=== PATIENT | female | born 1975 | race Caucasian/White ===

== ENCOUNTER 2018-01-11 16:22 | Emergency (ER) | payer MEDICAID, SELFPAY ==
[2018-01-11 16:24] VITALS: PULSE 120; RESP 16; TEMP 36.9; O2SAT 90; BMI 24.2
--- NOTE | 2018-01-11 16:41 | CT_ITS ---
STUDY: CT BRAIN WITHOUT CONTRAST REASON FOR EXAM: Female, 42 years old. Altered mental status. RADIATION DOSAGE (If Supplied By Facility): CTDIvol = ( 44.99 ) mGy, DLP = ( 1828.44 ) mGycm TECHNIQUE: Transaxial CT imaging of the brain was performed without administration of intravenous contrast material. Individualized dose optimization techniques were used for this CT. COMPARISON: None. FINDINGS: Normal soft tissue structures. Normal calvarium. Motion artifact degrades anatomic detail. Normal size ventricles and extra-axial spaces for the patient's age. Normal white matter tracts of the cerebral hemispheres. Normal basal ganglia and thalami. Normal brainstem. Normal cerebellum. There is no intracranial hemorrhage. There are no findings of an acute ischemic infarction. Normal visualized paranasal sinuses. CT/Brain/Head without Contrast IMPRESSION: Limited examination secondary to motion artifact demonstrating no acute intracranial process. Electronically Signed: Mady Fonseca MD at 21:13 EDT Tel , Service support ,
[2018-01-11] MEDS: Ziprasidone IM 20 MG/ML VIAL IM ×2 (16:47→19:00)
[2018-01-11 17:01] VITALS: BP 134/65
--- NOTE | 2018-01-11 17:02 | EKG12_ITS ---
Test Reason : OD Blood Pressure : / mmHG Vent. Rate : 097 BPM Atrial Rate : 097 BPM P-R Int : 126 ms QRS Dur : 084 ms QT Int : 400 ms P-R-T Axes : 085 081 067 degrees QTc Int : 508 ms Normal sinus rhythm Prolonged QT Abnormal ECG Confirmed by WILVER GOODWIN ([id number]), fan mail editor SVITLANA SETINBERG ([id number]) on 01/15/2018 1:37:41 PM Referred By: FIORELLA Confirmed By:WILVER GOODWIN
--- NOTE | 2018-01-11 17:16 | ED.RN ---
PT HAS BEEN YELLING INTERMITTENTLY, CURSING AT STAFF, AND THREATENING TO KICK YOUR BITCH ASS TO SEVERAL OF THE STAFF. PT SHAKING ARMS THAT ARE RESTRAINED AND ATTEMPTED TO BITE SEVERAL OF THE STAFF WHEN APPLYING LOCKED RESTRAINTS. UNABLE TO OBTAIN ALL VITAL SIGNS AT THIS TIME.
[2018-01-11] MEDS: DiphenhydrAMINE 50 MG/ML Syringe 25 MG IV (17:39)
[2018-01-11] MEDS: Haloperidol Lactate 5 MG/ML Vial 10 MG IM (17:39)
--- NOTE | 2018-01-11 17:48 | ED.VISSUMM ---
- ER Visit Summary Date of Service: 01/11/18 Chief Complaint: Overdose History of Present Illness: The patient is a 42 F presenting with police with agitation. Patient was found screaming after an unknown ingestion. She had amitriptyline in a bag next to her. Unknown how many she ingested. She was reportedly at a drug house last night. She has been talking about being better off . She is unable to provide any additional history. Physical Examination: Vitals are stable. Patient is afebrile. Alert no acute distress. HEENT exam is unremarkable. Neck is supple. Lungs are clear and equal bilaterally. Heart is regular and tachycardic Abdomen is soft nontender nondistended. Extremities are unremarkable. Skin is warm and dry. No focal neurologic deficit. Agitated and screaming Remainder of exam is unremarkable. Emergency Department Course and Treatment: Patient was given Geodon, Haldol, Benadryl, Ativan. CBC shows a white count of 14.5, chemistries unremarkable. HCG negative. Salicylate level is 2.8, Tylenol level less than 2.0. Alcohol 8.0. Tox positive for THC, methamphetamine, amphetamine. CT head shows no acute hemorrhage, motion artifact. Patient will be observed in the emergency department and checked out to oncoming physician for re-evaluation. Disposition: pending Impression: Polysubstance abuse This note was generated with Rayspan dictation software. It may contain incorrect words, spelling, and punctuation that were not noted in review of the chart prior to signing ED Disposition - Plan for ED Patient: Chief Complaint: Overdose Referrals: Kylah Jordan MD [Primary Care Provider] -
[2018-01-11 18:29] VITALS: PULSE 120; RESP 16; O2SAT 98
[2018-01-11 20:36] LABS: Absolute Lymphocyte Count 2.85 X10^3/ul (0.83-4.51); Absolute Neutrophil Count 11.2 X10^3/uL (2.0-7.7); Basophil# 0.02 X10^3/uL; Basophil% 0.1 % (0-1); Eosinophil# 0.01 X10^3/uL; Eosinophils% 0.1 % (0-5); Hematocrit 42.3 % (37-47); Hemoglobin 13.9 g/dl (12.0-15.0); Lymphocyte # 2.85 X10^3/ul (4.0); Lymphocyte % 19.6 % (19-41); Mean Corp Hgb Conc 32.9 g/gl (32-36); Mean Corpuscular Volume 88.3 fL (81-99); Monocyte# 0.45 X10^3/uL; Monocyte% 3.1 % (0-10); Neutrophil # 11.16 X10^3/uL (2.7-7.7); Neutrophil % 76.9 % (47-70); Platelet Count 360 K/mm3 (150-450); RBC Distribution Width CV 13.3 % (11.6-14.6); RBC Distribution Width SD 43.3 fl (35.1-43.9); Red Blood Count 4.79 M/mm3 (4.2-5.4); White Blood Count 14.5 K/mm3 (4.4-11.0)
[2018-01-11 20:39] LABS: POSITIVE COUNT NO; POSITIVE DIFFERENTIAL NO; POSITIVE MORPHOLOGY NO
[2018-01-11 20:49] LABS: Anion Gap 9 (5-15); BUN 5 mg/dL (7-18); BUN/Creat Ratio 7.4 RATIO (10-20); Calcium,Total 9.1 mg/dL (8.5-10.1); Chloride 108 mmol/L (98-107); Creatinine, Serum 0.67 mg/dL (0.55-1.02); EST Glomerular Filtration Rate 103 mL/min (>60); Est Glom Filt Rate - Afr Amer 125 mL/min (>60); Estimated Creatinine Clearance 104.49 ml/min; Glucose 97 mg/dL (74-106); Potassium 3.8 mmol/L (3.5-5.1); Sodium Level 142 mmol/L (136-145)
[2018-01-11 20:59] LABS: Pregnancy, Serum, hCG Quali. NEGATIVE Negative (0-9 Nonpreg)
[2018-01-11 20:59] LABS: Amphetamine Urine VISTA POSITIVE (<1000 ng/mL); Barbiturate Urine VISTA NEGATIVE (< 200 ng/mL); Benzodiazepine Urine VISTA NEGATIVE (< 200 ng/mL); Cocaine Urine VISTA NEGATIVE (< 300 ng/mL); Ecstacy Urine VISTA POSITIVE (< 500 ng/mL); Methadone Urine VISTA NEGATIVE (< 300 ng/mL); PCP Urine VISTA NEGATIVE (< 25 ng/mL); THC Urine VISTA POSITIVE (< 50 ng/mL); Vista UDS pH Range 5
[2018-01-11 21:17] LABS: Acetaminophen (Tylenol) Level < 2.0 ug/mL (10.0-30.0); Salicylate 2.8 mg/dL (2.8-20.0)
[2018-01-11 22:15] VITALS: PULSE 107; RESP 16; O2SAT 97
--- NOTE | 2018-01-11 22:31 | ED.RN ---
PT SLEPT BRIEFLY AND NOW AWAKE AND SCREAMING AND THRASHING WITH LOCKED 4 POINT RESTRAINTS.
[2018-01-11 23:57] VITALS: BP 110/70; PULSE 92; RESP 16
[2018-01-12] VITALS (20 sets, daily range): BP systolic 104–151; BP diastolic 48–74; PULSE 60–87; RESP 12–19; O2SAT 96–100
--- NOTE | 2018-01-12 00:09 | ED.RN ---
PT SCREAMS INTERMITTENTLY AND MANY ATTEMPTS HAVE BEEN MADE TO EXPLAIN TO PT ON LOCKED RESTRAINTS, PT WILL NOT STOP YELLING AND SCREAMING TO ALLOW AN EXPLANATION.
[2018-01-12] MEDS: LORazepam 2 MG/ML Syringe IM (01:57)
--- NOTE | 2018-01-12 02:10 | ED.RN ---
WHEN ASSISTING ANOTHER RN ADMINISTER IM [facility], THE PT JERKED HER LEG CAUSING THE NEEDLE TO COME OUT AND MAKE TWO SUPERFICIAL ABRASIONS ON THE RIGHT OUTER THIGH. BACITRACIN AND BAND AID APPLIED.
--- NOTE | 2018-01-12 06:30 | ED.RN ---
RESTRAINTS DISCONTINUED.
--- NOTE | 2018-01-12 06:58 | NURSING ---
CALLED [facility] TO MAKE THEM AWARE OF PATIENT
--- NOTE | 2018-01-12 07:10 | NURSING ---
RUFUS WARE , CALLED BACK. SHE WILL SEND DAKOTAH IN TO SEE PATIENT
--- NOTE | 2018-01-12 07:56 | ED.RN ---
TALKED WITH [facility] FROM [facility]. STATES NAYA WILL BE OVER TO ASSESS PT THIS AM
--- NOTE | 2018-01-12 09:31 | NURSING ---
DAKOTAH, [facility], HERE
--- NOTE | 2018-01-12 11:50 | ED.RN ---
NAYA FROM [facility] HERE TO SEE PT
--- NOTE | 2018-01-12 12:03 | ED.RN ---
PT MOTHER CALLED IN. TALKING WITH NAYA FROM [facility]
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
--- NOTE | 2018-01-12 14:05 | ED.RN ---
PT BECOMES VERY VERY ANGRY. PT KICKING OUT AND SCREAMING. THIS RN ABLE TO PROVIDE WARM BLANKETS AND CALM PT DOWN. PT RESTING
--- NOTE | 2018-01-12 15:04 | ED.RN ---
NAYA FROM [facility] IN WITH PT TO EVALUATE
--- NOTE | 2018-01-12 15:22 | EKG12_ITS ---
Test Reason : [facility] [place] Blood Pressure : / mmHG Vent. Rate : 067 BPM Atrial Rate : 067 BPM P-R Int : 120 ms QRS Dur : 084 ms QT Int : 472 ms P-R-T Axes : 070 069 068 degrees QTc Int : 498 ms Normal sinus rhythm Prolonged QT Abnormal ECG Confirmed by AGNIESZKA PÉREZ, LIAM ([id number]), communications editor SVITLANA STEINBERG ([id number]) on 01/15/2018 1:17:54 PM Referred By: FIORELLA Confirmed By:LIAM AARON MD
--- NOTE | 2018-01-12 15:36 | ED.RN ---
PATIENT RESTING IN BED WHILE RT IS IN ROOM DOING AN EKG. PT IS CURRENTLY COOPERATIVE AND HAS NO C/O. PT HAS MULTIPLE FOOD ITEMS AT BEDSIDE THAT SHE ASKED FOR AND HASN'T EATEN YET.
[2018-01-12 15:43] LABS: TCA Internal Control -Neg LINE = VALID (- VALID); TCA Urine Drug Screen POSITIVE (<1000 ng/mL)
[2018-01-12 16:06] LABS: AST(SGOT) 13 U/L (15-37); Alanine Aminotransfer ALT/SGPT 16 U/L (13-56); Alkaline Phosphatase 45 U/L (45-117); Globulin 3.8 g/dL (2.2-4.2); Protein, Total 7.8 g/dL (6.4-8.2)
--- NOTE | 2018-01-12 17:04 | ED.RN ---
pt friend angus calls to speak with manish from [facility]. pt given crises number and will page manish to contact her regarding pt
--- NOTE | 2018-01-12 17:28 | ED.RN ---
PATIENT RESTING W/O C/O. PT OFFERED A DRINK AND SHE REFUSED. VITALS OBTAINED. PT GIVEN ADDITIONAL BLANKETS DUE TO BEING COLD.
--- NOTE | 2018-01-12 17:56 | ED.RN ---
nurse from [facility] calls to gather more information regarding pt placement. states will have to discuss with both psychiatrist and medical dr due to the possible tricyclic overdose.
--- NOTE | 2018-01-12 18:22 | ED.RN ---
patient's friend angus is present at bedside. Rk, crisis counselor has been paged to notify him that she is at bedside.
--- NOTE | 2018-01-12 18:33 | ED.RN ---
Addendum entered by Rosanna Gauthier 01/12/18 18:38: NAYA, CRISIS COUNSELOR, HAS BEEN PAGED PREVIOUSLY AND AWAITING CALL BACK. Original Note: THIS RN SPOKE TO STAFF AT [facility] WHO EXPLAINED THAT THEY WOULD NOT BE ABLE TO ACCEPT THE PATIENT AT THIS CURRENT TIME PER ACCEPTING PHYSICIAN DUE TO PATIENT'S BEHAVIOR AND HER CONDITION LESS THAN 13 HOURS AGO.
--- NOTE | 2018-01-12 18:39 | ED.RN ---
NAYA, CRISIS COUNSELOR JUST ARRIVED AND IS AT BEDSIDE TO SPEAK WITH PATIENT AND FRIEND
[2018-01-13] VITALS: RESP 14
[2018-01-13 01:00] VITALS: RESP 14
[2018-01-13 02:00] VITALS: RESP 16
[2018-01-13 03:00] VITALS: BP 94/53; PULSE 61; RESP 14; O2SAT 100
--- NOTE | 2018-01-13 04:07 | ED.DEP ---
ED Disposition - Plan for ED Patient: Chief Complaint: Overdose Instructions: ED Overdose Accidental, ED Drug Abuse General Referrals: Kylah Jordan MD [Primary Care Provider] - 2 Days Counseling,Center [GROUP OF PHYSICIANS] - 2 Days
[2018-01-13 04:36] VITALS: PULSE 64; RESP 16; O2SAT 100
--- NOTE | 2018-01-13 04:44 | ED.RN ---
CONTACTED FRIEND PB PER PTS REQUEST. PB STATES SHE WILL COME PSYCHODRAMATIST PT IN ABOUT AN HOUR OR SO.
== END 2018-01-13 06:58 | disposition home or self-care (01) ==
PROVIDERS: Emergency Medicine; Emergency Provider Emergency Medicine; Family Provider Internal Medicine; PCP Internal Medicine
DX: F15.10 Other stimulant abuse, uncomplicated (principal); F12.10 Cannabis abuse, uncomplicated
CPT/HCPCS: 70450; 80048; 80076; 80307; 80320; 80329; 84703; 85025; 93005; 96372; 96374; 99284; G0480; J3486

== ENCOUNTER 2020-02-16 09:32 | Emergency (ER) | payer MEDICAID, SELFPAY ==
[2020-02-16 09:34] VITALS: BP 90/36; PULSE 100; RESP 17; TEMP 35.7; O2SAT 96; BMI 18.8
[2020-02-16] MEDS: HYDROmorphone 1 MG/ML Syringe 2 MG IM (10:05)
--- NOTE | 2020-02-16 10:24 | RAD_ITS ---
STUDY: X-RAY - LEFT FEMUR REASON FOR STUDY: Female, 44 years old. Upper left hip pain x 1 week, renal cancer bone mets TECHNIQUE: 4 view(s) of the femur. COMPARISON: None. FINDINGS: Normal visualized femur. Normal visualized soft tissue structure. RAD/Femur Min 2 Views IMPRESSION: Normal x-ray examination of the femur. Electronically Signed: Trevon Iniguez, at 11:09 EDT , Service support ,
[2020-02-16 10:56] VITALS: RESP 18
[2020-02-16 10:59] LABS: Bacteria 0 SEEN /hpf (None Seen)
[2020-02-16 11:01] LABS: Color, Urine Yellow (Yellow); Glucose, Dipstick Normal (Normal); Ketone-Dipstick 15 mg/dl (Negative); Leukocyte Esterase-Dipstick 100 /ul (Negative); Nitrite-Dipstick Negative (Negative); Occult Blood-Urine 10 /ul (Negative); Protein-Dipstick 30 mg/dl (Negative); Urine Clarity Clear (Clear); Urine Urobilinogen 4 mg/dl (Normal)
[2020-02-16 11:02] LABS: Urine Bilirubin Dipstick 3 mg/dL (Negative)
[2020-02-16 11:03] LABS: Internal QC Validated? YES +Cl - CLEAR BKGD; Pregnancy, Urine Negative Negative
[2020-02-16 11:08] LABS: Mucous, Urine 2+ /hpf (<or=2+); Red Blood Cells-Urine 0-5 SEEN /hpf (0-5); Squamous Epithelial Cells - UA 0-5 SEEN /hpf (5-10); White Blood Cells 0-5 SEEN /hpf (0-5)
--- NOTE | 2020-02-16 11:31 | ED.DCSUM_ITS ---
- ER Visit Summary Date of Service: 02/16/20 Chief Complaint: Left hip pain History of Present Illness: The patient is a [address] 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 She reports that she has a history of renal cell cancer with bony metastases. She is currently on Keytruda. She reports that for the p ast week she has had a sharp, stabbing pain in the left hip. Is 10 of 10 severity. Is worsened by movement. Is relieved minimally by rest. She is taking her MS Contin and Dilaudid without relief. She reports that she has numbness in her left leg around her hip. She denies any problems with her bowels or her bladder. She reports that she has back pain is 5-10 in severity. This is unchanged from her baseline. She denies any groin numbness. Patient denies any recent trauma. No fall, MVA, or change in activity. She reports has had a little bit of dysuria for the past 2 days. She denies frequency. Physical Examination: Vitals: Stable. Afebrile. General: Well-nourished and well-developed. Head: Normocephalic atraumatic. Neck: Supple, no lymphadenopathy. No JVD. Nontender. Cardiovascular: Regular rate and rhythm. No murmurs. Respiratory: No respiratory distress. Clear to auscultation bilaterally. Abdominal: Soft, nontender, nondistended, normal bowel sounds. No guarding, rebound, or peritoneal signs. Back: Mild diffuse tenderness palpation over her entire thoracic and lumbar spine. There is no point tenderness. She has full range of motion without difficulty. Extremities: Severe tenderness palpation over the left greater trochanter. She has no pain with internal or external stenting of her hip. No pain with movement of her leg.. Skin: Normal color, no rash. Neurologic: Alert and oriented ?3. Cranial nerves II through XII are intact. Normal strength and sensation. Psych: Normal affect. Test Results: Urinalysis shows no infection. Clinical Impression(s) from Imaging Studies Femur X-Ray 02/16/20 10:24 IMPRESSION: Normal x-ray examination of the femur. Electronically Signed: Trevon Iniguez, at 11:09 EDT , Service support , Emergency Department Course and Treatment: Patient was given a dose of Dilaudid IM. She is resting more comfortably. Treatment Plan: Patient is currently on 30 mg of MS Contin 4 times daily and 4 mg of Dilaudid 3 times daily. I do not feel comfortable adding more opiate- based medications to this. She will be discharged instructions to follow-up with her oncologist soon as possible for further evaluation and treatment of her pain. Return to the emergency department for any worsening symptoms. Disposition: To home in improved and stable condition. Impression: 1. Left hip pain. 2. History of renal cancer with bony metastases. This note was generated with [employer]oy[employer] dictation software. It may contain incorrect words, spelling, and punctuation that were not noted in review of the chart prior to signing ED Disposition - Plan for ED Patient: Instructions: Back Exercises: Hip Rotator Stretch Referrals: Kylah Jordan MD [Primary Care Provider] - Additional Instructions: Follow-up with Dr. Jefefrson as soon as possible.
== END 2020-02-16 12:46 | disposition home or self-care (01) ==
LOC: ED 10:02
PROVIDERS: Emergency Provider Emergency Medicine; PCP Internal Medicine
DX: M25.552 Pain in left hip (principal); C64.9 Malignant neoplasm of unspecified kidney, except renal pelvis; C79.51 Secondary malignant neoplasm of bone; Z79.891 Long term (current) use of opiate analgesic; Z72.0 Tobacco use
CPT/HCPCS: 73552; 81001; 81025; 96372; 99283